=== PATIENT | female | born 1950 | race Caucasian/White ===

== ENCOUNTER 2020-04-13 10:10 | Outpatient (CLI) | payer MEDICARE, SELFPAY ==
--- NOTE | 2020-04-13 10:21 | XR_ITS ---
WS: [id number] Exam: XR knee LT 3V* [id number] Date/Time of Exam: 04/13/2020 10:27 AM Reason For Exam: L KNEE LEG PAIN Findings: No fracture or dislocation. Probable joint effusion. Soft tissues are otherwise unremarkable. The payam nt compartments are relatively well maintained. XR/XR knee LT 3V* [id number] IMPRESSION: 1. No acute fracture. 2. Probable joint effusion.
== END 2020-04-13 10:11 | disposition home or self-care (01) ==
LOC: LAB 10:16
PROVIDERS: PCP Nurse Practitioner Family; Visit Provider Nurse Practitioner Family
DX: M79.605 Pain in left leg (principal); M25.562 Pain in left knee
CPT/HCPCS: 73562

== ENCOUNTER 2020-04-28 06:00 | Outpatient (CLI) | payer MEDICARE, SELFPAY | END 2020-04-28 06:01 | disposition home or self-care (01) | LOC: RADSHAW 02-01 14:10 | PROVIDERS: PCP Nurse Practitioner Family; Visit Provider Orthopaedic Surgery | DX: M54.10 Radiculopathy, site unspecified (principal); M51.36 Other intervertebral disc degeneration, lumbar region | CPT/HCPCS: 72100 ==

== ENCOUNTER → 2022-07-03 09:10 | Outpatient (BNVA) | payer MEDICARE, MEDICAID, SELFPAY | PROVIDERS: PCP Nurse Practitioner Family; Visit Provider Podiatrist Foot & Ankle Surgery | DX: T84.84XA Pain due to internal orthopedic prosthetic devices, implants and grafts, initial encounter (principal); Y79.2 Prosthetic and other implants, materials and accessory orthopedic devices associated with adverse incidents | CPT/HCPCS: 73630; 99204 ==

== ENCOUNTER 2022-08-25 06:24 | Day surgery (SDC) | payer MEDICARE, MEDICAID, SELFPAY ==
[2022-08-24 10:54] VITALS: BMI 26.5
[2022-08-25] VITALS (8 sets, daily range): BP systolic 100–151; BP diastolic 59–79; PULSE 51–74; RESP 12–18; TEMP 36.1–36.6; O2SAT 92–100
[2022-08-25] MEDS: sodium chloride 0.9% 1,000 ML 30 ML IV (07:08)
[2022-08-25] MEDS: gabapentin 300 mg Capsule PO (07:08)
--- NOTE | 2022-08-25 07:08 | P.ANESASSM_ITS ---
Pre-Anesthetic Assessment Height/Weight: Height 1.57 m Weight 65.771 kg Temp Pulse Resp BP Pulse Ox O2 Del Method 97.8 F 74 16 133/79 92 08/25/22 06:37 08/25/22 06:37 08/25/22 06:37 08/25/22 06:37 08/25/22 06:37 08/25/22 06:37 Preop Diagnosis: Painful hardware right ankle Operation Date: 08/25/22 08:05 Proposed Procedures p ?Hardware removal right ankle 94413,T84.84XA(Right) - Andres Denise DPM Familial anesthetic complications: States she has three times. Once while on the table for a surgery (she doesn't remember what surgery it might've been), once after a doctor gave her a white pill to swallow (she doesn't know what the pill was), and once after getting morphine for her elbow. They had to bring me back, I . When pressed further, she said no chest compressions were done and seemed to be surprised at the suggestion that compressions would be needed in the event of dying, she doesn't think they had to shock her heart, she didn't end up on a ventilator afterwards or even stay in the ICU. When asked if they actually told her she , she admitted she might not be using the right word for it. She states you know... everything went blank, and they said my blood pressure dropped...and they had to bring me back. Was Beta Tam taken within 24 hours: N/A Was Clonidine taken within 24 hours: N/A Last intake: Intake Last Liquid Date 08/24/22 Last Liquid Time 23:55 Last Solid Date 08/24/22 Last Solid Time 23:55 Social No alcohol and No tobacco Exam alert, oriented x 3, clear to auscultation bilaterally and regular rate & rhythm Airway Mallampati: Class II Dentition: full CV/HEM hx of rheumatic fever with a murmur present, but able to achieve 4 METS and states she's never had any heart problems Anesthetic Plan ASA status: 3 Anesthesia: MAC Other: light MAC, which is in line with patient's preexisting wishes Risk of > 500 ml blood loss (7ml/kg in children): No Other Pertinent Information I suspect events of dying are most likely respiratory arrest and hypotension in setting of opioid administration and anesthesia. Patient does have murmur with history of rheumatic, but has good functional status. A CXR from 2016, at minimal, shows normal cardiac silhouette. Medications/Allergies Home Medications Medication Instructions Recorded Confirmed Last Taken Type No Known Home Medications 08/24/22 08/24/22 Unknown History Allergies Allergy/AdvReac Type Severity Reaction Status Date / Time Sulfa (Sulfonamide Allergy ADV-Weaknes Verified 08/24/22 10:53 Antibiotics) s [facility] Anesthesia Medical History Ear pain, left Herpes zoster cephalicus Data Anesthesia Cardiac Studies: No Data to Display
[2022-08-25] MEDS: CELEcoxib 200 mg Capsule 400 MG PO (07:09)
--- NOTE | 2022-08-25 07:40 | W.PM.OPSUD ---
Surgery/Procedure H&P Update DATE OF PROCEDURE: August 25, 2022 DATE H&P PERFORMED: 07/03/22 PREOP DIAGNOSIS: Painful hardware right ankle PLANNED PROCEDURE: Operation Date: 08/25/22 08:05 Proposed Procedures p ?Hardware removal right ankle 09019,T84.84XA(Right) - Andres Denise DPM
--- NOTE | 2022-08-25 07:43 | PM.OPSURHP ---
Providers/Chief Complaint Primary Care Provider: Jessica Bang Chief Complaint: Pain due to internal orthopedic prosthetic devices History of Present Illness Terri Ferguson is a 72 year old female patient presenting to the clinic for right ankle pain. Patient states she had ankle surgery in the late 80's on her right ankle. She has screws on the medial and lateral sides. Patient states worse pain on the lateral side of ankle. Patient states her pain is worse at night after being on her feet throughout the day. Patient states she uses bio-freeze on her ankle, she states it doesn't help. Review of Systems General: Reports: 10 or more systems reviewed and unremarkable except in HPI and below Const: Denies: fever(s) or chills Eyes: Denies: change in vision Card: Denies: chest pain or palpitations Resp: Denies: dyspnea or productive cough GI: Denies: abdominal pain, nausea or vomiting : Denies: flank pain Musc: Reports: extremity pain Skin/Breast: Denies: rash Neuro: Denies: numbness in extremities, sensory changes or frequent falls Psych: Denies: suicidal ideation Gray/Lymph: Denies: easy bruising Medications/Allergies Home Medications Medication Instructions Recorded Confirmed Last Taken Type No Known Home Medications 08/24/22 08/24/22 Unknown History Allergies Allergy/AdvReac Type Severity Reaction Status Date / Time Sulfa (Sulfonamide Allergy Yusra Verified 08/24/22 10:53 Antibiotics) s PFSH PFSH: Medical History Ear pain, left Herpes zoster cephalicus Vital Signs Vitals Signs: Last Vital Signs Temp 97.8 F 08/25/22 06:37 Pulse 74 08/25/22 06:37 Resp 16 08/25/22 06:37 BP 133/79 08/25/22 06:37 Pulse Ox 92 08/25/22 06:37 O2 Del Method 08/25/22 07:18 Weight: Weight last 48 hrs Weight 145 lb Physical Exam Narrative: EXAM NARRATIVE: Patient is alert and oriented ?3 and in no acute distress.? The following is a focused bilateral lower extremity exam. VASCULAR: Dorsalis pedis and posterior tibial arteries palpable +2.? Capillary refill time less than 3 seconds to the distal hallux bilaterally. Calf is supple and nontender proximally and distally.? No pedal edema appreciated.? Pedal hair growth present. NEUROLOGICAL: Epicritic and protopathic sensations grossly intact to the lower extremities.? +2 Achilles tendon reflex noted bilaterally.? Negative Tinel sign upon percussion of lower extremity nerves. DERMATOLOGICAL: Well-healed cicatrix right ankle both medial and lateral.? No ecchymosis or erythema. MUSCULOSKELETAL: Prominent hardware at the right ankle able to visualize tenting of the skin medially x2 with tenderness palpation at prominent hardware at the medial malleolus.? Prominent hardware at the right lateral ankle with tenting of the skin distally at the lateral malleolus with tenderness palpation at this hardware.? Ankle range of motion is smooth without crepitus.? Muscle strength 5 out of 5 in all 3 planes to the right foot and ankle. CARDIOVASCULAR: S1, S2, normal rate, normal rhythm.? Dorsalis pedis and posterior tibial arteries palpable. LUNGS: Clear to auscltation, no use of acessory muscles, no crackles or wheezes. A&P Assessment and plan (1) Right ankle pain: (2) Painful orthopaedic hardware: Plan History of right ankle fracture and history of ORIF.? She has had a progression of prominent hardware both at the medial malleolus and lateral malleolus.? Hardware causes irritation and pain on a daily basis.? It is tenting the skin both medially and laterally.? She is afraid that the screw will protrude to the point will make a wound.? Requesting hardware removal.? I reviewed at length with the patient, the risks, potential complications, benefits, alternatives, expectations, and typical outcomes associated with the surgery. The risks and potential complications were explained in detail, including but not limited to infection, wound dehiscence or soft tissue complications, bleeding and hematoma, chronic edema, neuritis or nerve damage producing numbness or chronic pain, CRPS, failure to relieve pain or worsening pain, thick / painful / unsightly scar, limited motion / stiffness, malposition, delayed union, malunion, or nonunion, fracture, reaction to implants, anesthetic complications, venous thromboembolism, and deformity recurrence.? I discussed the notion of no regrets with the patient as it pertains to complications and outcomes. The patient seemed to understand the nature of the proposed care and required convalescence. They asked appropriate questions, answered to their satisfaction. They are aware no guarantees can be made as to a satisfactory outcome and they understand there may be other possible unforeseen complications or outcomes not listed here that will be treated accordingly if they arise. There were no written or implied guarantees given to the patient. They gave informed consent to proceed. Deep hardware removal right ankle.? Scheduled August 25, 2022 outpatient.? Supine, gurney, MAC versus general LMA per anesthesia preference, 30 minutes, mini C arm. Coding Level of Care Code Acute Code for [facility] Fwd Diagnoses Right ankle pain M25.571 Painful orthopaedic hardware T84.84XA
[2022-08-25] MEDS: ceFAZolin 2,000 MG in sodium chloride 0.9% (plus) 50 ML 100 MG IV (07:57)
--- NOTE | 2022-08-25 08:56 | XR_ITS ---
WS: [id number] Right ankle, 2 views, 08/25/2022 Clinical Data: post op Comparison: Right ankle, 07/03/2022 Findings: There has been partial removal of the orthopedic internal fixation devices. The transverse screws in the distal right tibia and the fibular plate with multiple screws have been removed. The AP screws in the distal right fibula remain. There are subcutaneous surgical jeremiah overlie the operative sites. XR/XR ankle RT 2V [id number] Impression: Partial removal of orthopedic internal fixation devices from distal right fibul a and tibia.
--- NOTE | 2022-08-25 09:01 | PM.OP ---
Operative Report Date of procedure: August 25, 2022 Pre-op diagnosis: Preop Diagnosis Painful hardware right ankle Post-op diagnosis: Painful hardware right ankle Post-op findings: None Procedure done: Hardware removal right distal fibula. CPT code 98028 Hardware removal right distal tibia. CPT code 77151 Implants: 2-0 Vicryl, 3-0 Vicryl, skin jeremiah Surgeon: Andres Denise D.P.M. Facility Sales And Admin: Corey Iqbal Brief History: History of right ankle fracture and history of ORIF.? She has had a progression of prominent hardware both at the medial malleolus and lateral malleolus.? Hardware causes irritation and pain on a daily basis.? It is tenting the skin both medially and laterally.? She is afraid that the screw will protrude to the point will make a wound.? Requesting hardware removal.? I reviewed at length with the patient, the risks, potential complications, benefits, alternatives, expectations, and typical outcomes associated with the surgery. The risks and potential complications were explained in detail, including but not limited to infection, wound dehiscence or soft tissue complications, bleeding and hematoma, chronic edema, neuritis or nerve damage producing numbness or chronic pain, CRPS, failure to relieve pain or worsening pain, thick / painful / unsightly scar, limited motion / stiffness, malposition, delayed union, malunion, or nonunion, fracture, reaction to implants, anesthetic complications, venous thromboembolism, and deformity recurrence.? I discussed the notion of no regrets with the patient as it pertains to complications and outcomes. The patient seemed to understand the nature of the proposed care and required convalescence. They asked appropriate questions, answered to their satisfaction. They are aware no guarantees can be made as to a satisfactory outcome and they understand there may be other possible unforeseen complications or outcomes not listed here that will be treated accordingly if they arise. There were no written or implied guarantees given to the patient. They gave informed consent to proceed. Procedure: Under mild sedation the patient was brought to the operating room and remained on the gurney in supine position. A timeout was performed. Anesthesia was then administered by the anesthesia service. Local anesthesia was injected by myself consisting of 0.5% Marcaine plain total of 20 cc right ankle block fashion. Additional 10 cc of Exparel also administered subcutaneously in a grid like fashion at the operative site per manufacture recommendation technique. Well-padded pneumatic tourniquet was applied to the right high calf. Right lower extremity was scrubbed, prepped and draped utilizing normal aseptic technique. Right foot and ankle were exanguinated with an Esmarch bandage and the tourniquet inflated to 250 mmHg. Attention was directed to the lateral aspect of the right ankle where a cicatrix was appreciated. Over the previous incision a linear longitudinal incision was made through skin with a #15 blade with dissection carried down through soft tissue to the layer of hardware utilizing sharp and blunt technique. Care was taken to retract and preserve neurovascular and tendinous structures. All bleeders were ligated and cauterized as necessary. A one third tubular plate at the lateral malleolus was appreciated. A total of 5 screws that were within the plate and the plate itself were removed in total and passed from the operative field. All rough edges were smoothed with a hand rasp. The interfrag screws were left intact as they were not proud nor did I believe that surgical dissection would be worth pursuing to eliminate these 2 screws that did not contribute to her hardware pain or tenting the skin. The incision was flushed with copious amounts of sterile skin solution. Periosteum reapproximated utilizing 2-0 Vicryl. Subcutaneous tissue was reapproximated utilizing 3-0 Vicryl and skin with jeremiah. Attention was then directed to the medial malleolus of the right ankle, there was hardware palpable and tenting the skin at the medial malleolus. No break in the skin appreciated, no erythema or warmth appreciated. Directly over the previous cicatrix a linear longitudinal incision was made through skin with #15 blade directly over the screw heads with dissection carried down through subcutaneous tissue through fascia and periosteum down to the level of hardware. Care was taken to retract and preserve neurovascular and tendinous structures. All bleeders were ligated and cauterized as necessary. Total of 2 screws with accompanying washers were removed from the medial malleolus of the right distal tibia. No fragmented hardware or failure appreciated. The incision was then flushed with copious amounts of sterile saline solution. Rough edges were smoothed with a hand rasp. Further irrigation was then performed followed by closure in a layered fashion. Periosteum was reapproximated utilizing 2-0 Vicryl. Subcutaneous tissue was reapproximated utilizing 3-0 Vicryl and skin with skin jeremiah. Smooth range of motion without crepitus was appreciated to the right ankle. Negative anterior drawer sign intraoperatively, negative talar tilt test intraoperatively. No prominent hardware appreciated post removal. The incision at the right lateral malleolus and right medial malleolus were then dressed with Adaptic, sterile 4 x 4's, Kerlix and Mohsen wrap. Postop shoe was applied. Tourniquet was then deflated and a prompt hyperemic response was noted to the distal digits of the right foot. Patient tolerated the procedure well and was transferred to the PACU with vital signs stable and vascular status intact. Following a period of postoperative monitoring she will be discharged home. She may be weightbearing as tolerated below threshold of pain to the right lower extremity. She is to elevate her right foot while resting. Was given at home care instructions as well as follow-up scheduled in podiatry clinic for continued care. She is to contact me with any postoperative questions or concerns and was given my cell phone number for urgent needs.
== END 2022-08-25 10:10 | disposition home or self-care (01) ==
PROVIDERS: PCP Nurse Practitioner Family; Visit Provider Podiatrist Foot & Ankle Surgery
PROC: (CPT 20680; principal; 2022-08-25 07:55)
DX: T84.84XA Pain due to internal orthopedic prosthetic devices, implants and grafts, initial encounter (principal); Y83.8 Other surgical procedures as the cause of abnormal reaction of the patient, or of later complication, without mention of misadventure at the time of the procedure
CPT/HCPCS: 20680; 73600; 76000; C9290; J0690; J1100; J2405; J2704; J3490; J7030

== ENCOUNTER → 2022-08-31 12:49 | Outpatient (BNVA) | payer MEDICARE, SELFPAY | PROVIDERS: PCP Nurse Practitioner Family; Visit Provider Podiatrist Foot & Ankle Surgery | DX: Z98.890 Other specified postprocedural states (principal); T84.84XA Pain due to internal orthopedic prosthetic devices, implants and grafts, initial encounter; M25.571 Pain in right ankle and joints of right foot; Y79.2 Prosthetic and other implants, materials and accessory orthopedic devices associated with adverse incidents | CPT/HCPCS: 99024 ==

== ENCOUNTER → 2022-09-07 14:13 | Outpatient (BNVA) | payer MEDICARE, SELFPAY | PROVIDERS: PCP Nurse Practitioner Family; Visit Provider Podiatrist Foot & Ankle Surgery | DX: T84.84XA Pain due to internal orthopedic prosthetic devices, implants and grafts, initial encounter (principal); Y79.2 Prosthetic and other implants, materials and accessory orthopedic devices associated with adverse incidents | CPT/HCPCS: 99024 ==

== ENCOUNTER → 2022-10-05 13:48 | Outpatient (BNVA) | payer MEDICARE, SELFPAY | PROVIDERS: PCP Nurse Practitioner Family; Visit Provider Podiatrist Foot & Ankle Surgery | DX: Z98.890 Other specified postprocedural states (principal); T84.84XA Pain due to internal orthopedic prosthetic devices, implants and grafts, initial encounter; Y79.2 Prosthetic and other implants, materials and accessory orthopedic devices associated with adverse incidents | CPT/HCPCS: 99024 ==

== ENCOUNTER → 2023-01-15 12:45 | Outpatient (BNVA) | payer MEDICARE, SELFPAY | PROVIDERS: PCP Nurse Practitioner Family; Visit Provider Podiatrist Foot & Ankle Surgery | DX: Z98.890 Other specified postprocedural states (principal); G57.91 Unspecified mononeuropathy of right lower limb; M25.571 Pain in right ankle and joints of right foot; M25.371 Other instability, right ankle | CPT/HCPCS: 99024 ==

== ENCOUNTER → 2023-08-06 10:48 | Outpatient (BNVA) | payer MEDICARE, MEDICAID, SELFPAY | PROVIDERS: Visit Provider Podiatrist Foot & Ankle Surgery | DX: M20.41 Other hammer toe(s) (acquired), right foot; M20.42 Other hammer toe(s) (acquired), left foot; M21.611 Bunion of right foot; M21.612 Bunion of left foot; M77.41 Metatarsalgia, right foot | CPT/HCPCS: 73630; 99213 ==